=== PATIENT | female | born 1935 | race African-American/Black ===

== ENCOUNTER 2021-07-05 01:29 | Observation (INO) | payer MEDICARE, MEDICAID ==
[2021-07-05 03:16] LABS: CKMB 1.7 ng/mL (0-6.6)
[2021-07-05] MEDS ORDERED: Acetaminophen 325 MG TAB PO PRN (09:04)
[2021-07-05] MEDS ORDERED: Furosemide 80 MG TAB PO SCH (09:15)
[2021-07-05] MEDS ORDERED: hydrALAZINE 25 MG TAB PO SCH (09:15)
[2021-07-05] MEDS ORDERED: hydrALAZINE 25 MG TAB ONE (10:54)
[2021-07-05 16:36] VITALS: BMI 22.6
[2021-07-05] MEDS: Potassium Chloride 20 MEQ TAB PO SCH (16:53)
[2021-07-05 18:58] LABS: Hemoglobin A1c 5.2 % (4.0-6.0)
[2021-07-05] MEDS: hydrALAZINE 25 MG TAB PO SCH (20:54)
[2021-07-05] MEDS: Atorvastatin Calcium 40 MG TAB PO SCH (20:54)
[2021-07-05] MEDS: Apixaban 2.5 MG TAB PO SCH (20:55)
[2021-07-06] MEDS: Potassium Chloride 20 MEQ TAB PO SCH ×2 (08:18→17:34)
[2021-07-06] MEDS: hydrALAZINE 25 MG TAB PO SCH ×2 (08:18→20:08)
[2021-07-06] MEDS: Apixaban 2.5 MG TAB PO SCH ×2 (08:19→20:08)
[2021-07-06] MEDS: Furosemide 80 MG TAB PO SCH (08:19)
[2021-07-06 15:40] LABS: Cardiac Risk 3.7 (Less than 4.5)
[2021-07-06 16:11] LABS: SARS-CoV-2 PCR by NAA DETECTED (NotDetected)
[2021-07-06] MEDS: Atorvastatin Calcium 40 MG TAB PO SCH (20:07)
[2021-07-07] MEDS: Potassium Chloride 20 MEQ TAB PO SCH (08:55)
[2021-07-07] MEDS: hydrALAZINE 25 MG TAB PO SCH (08:56)
[2021-07-07] MEDS: Furosemide 80 MG TAB PO SCH (08:56)
[2021-07-07] MEDS: Apixaban 2.5 MG TAB PO SCH (08:56)
[2021-07-07 13:20] VITALS: BP 140/66; TEMP 97.7
== END 2021-07-07 14:30 | disposition home or self-care (01) ==
LOC: ERS 01:29 → ERHOLD 02:22 → NEURO 16:01
PROVIDERS: ADMIT Internal Medicine; ATTEND Internal Medicine
DX: R42 Dizziness and giddiness (principal); I48.91 Unspecified atrial fibrillation; U07.1 COVID-19; I11.0 Hypertensive heart disease with heart failure; I50.9 Heart failure, unspecified; E78.5 Hyperlipidemia, unspecified; I25.10 Atherosclerotic heart disease of native coronary artery without angina pectoris; I25.2 Old myocardial infarction; R79.89 Other specified abnormal findings of blood chemistry; E78.00 Pure hypercholesterolemia, unspecified; I08.3 Combined rheumatic disorders of mitral, aortic and tricuspid valves; Z87.891 Personal history of nicotine dependence; Z79.01 Long term (current) use of anticoagulants; Z79.899 Other long term (current) drug therapy; Z95.0 Presence of cardiac pacemaker; Z95.1 Presence of aortocoronary bypass graft
CPT/HCPCS: 70450; 80061; 82553; 83036; 84443; 84484; 93005; 93306; 93880; 95816; 95819; 95957; 97116; 97139 ×2; 99285; G0378 ×4; U0003; U0005; 36415